=== PATIENT | female | born 1985 ===

== ENCOUNTER 2017-01-02 21:11 | Emergency (ER) | payer SELFPAY ==
[2017-01-02 21:30] VITALS: RESP 18; O2SAT 100
--- NOTE | 2017-01-02 21:36 | ED PDOC ---
"Arrival/HPI - General Chief Complaint: Female Genitourinary Time Seen by Provider: 01/02/17 21:35 Historian: Patient - History of Present Illness Narrative History of Present Illness (Text): 01/02/17 21:36 31 y/o female, LMP 09/11/2016, , nkda, no pmh, c/o headache/back/pelvic pain x 1 week. Pt. stated that she has been spotting on and off for the past 1 week especially during the urination, admits the lower back pain with no fall or trauma with pelvic pressure, no dizziness, no change in vision, no numbness or tingling, no other medical or psychological complaints. Past Medical History - Provider Review Nursing Documentation Reviewed: Yes - Endocrine/Metabolic Hx Diabetes Mellitus Type 2: (Gestational) - Psychiatric Hx Substance Use: (m) Family/Social History - Physician Review Nursing Documentation Reviewed: Yes Family/Social History: Unknown Family HX Smoking Status: n Hx Alcohol Use: No Hx Substance Use: (m) Allergies/Home Meds Allergies/Adverse Reactions: Allergies No Known Allergies Allergy (Verified 01/02/17 21:30) Review of Systems - Review of Systems Constitutional: absent: Fatigue, Fevers Eyes: absent: Vision Changes ENT: absent: Hearing Changes Respiratory: absent: SOB, Cough Cardiovascular: absent: Chest Pain Gastrointestinal: absent: Abdominal Pain, Nausea, Vomiting Genitourinary Female: Vaginal Bleeding, Other (pelvic pain) Musculoskeletal: Back Pain. absent: Arthralgias, Neck Pain Skin: absent: Rash, Pruritis, Skin Lesions, Laceration, Abscess, Ulcer Neurological: absent: Headache, Dizziness Physical Exam Vital Signs Reviewed: Yes Vital Signs Temp Pulse Resp BP Pulse Ox 01/02/17 21:24 98.2 F 72 18 132/74 100 Temperature: Afebrile Blood Pressure: Normal Pulse: Regular Respiratory Rate: Normal Appearance: Positive for: Well-Appearing, Non-Toxic, Comfortable Pain Distress: Mild Mental Status: Positive for: Alert and Oriented X 3 - Systems Exam Head: Present: Atraumatic, Normocephalic, Other (no temporal artery tenderness. ) Pupils: Present: PERRL Extroacular Muscles: Present: EOMI Conjunctiva: Present: Normal Ears: Present: NORMAL TM, Normal Canal. No: Erythema Mouth: Present: Moist Mucous Membranes Neck: Present: Normal Range of Motion, Trachea Midline. No: Meningeal Signs, MIDLINE TENDERNESS, Paraspinal Tenderness, Lymphadenopathy Respiratory/Chest: Present: Clear to Auscultation, Good Air Exchange. No: Respiratory Distress, Accessory Muscle Use Cardiovascular: Present: Regular Rate and Rhythm, Normal S1, S2. No: Murmurs Abdomen: Present: Normal Bowel Sounds. 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 No: Vaginal Discharge, Vaginal Bleeding, Vaginal Lesions, Adenexal Tenderness, Adenexal Mass, Cervical Motion Tendernes, Odor Back: Present: Normal Inspection, Other (Thoracic to LS spine: no midline tenderness or step off, no cva tenderness, FROM without limitation, sensation intact, motor 5/5. ). No: CVA Tenderness, Midline Tenderness, Paraspinal Tenderness, Pain with Leg Raise, Decubitus Ulcer Upper Extremity: Present: Normal Inspection. No: Cyanosis, Edema Lower Extremity: Present: Normal Inspection. No: Edema Neurological: Present: GCS=15, Speech Normal, Motor Func Grossly Intact, Gait Normal, Memory Normal Skin: Present: Warm, Dry, Normal Color. No: Rashes Psychiatric: Present: Alert, Oriented x 3, Normal Insight, Normal Concentration Medical Decision Making ED Course and Treatment: 01/02/17 21:36 -labs/ua -transvaginal sonogram -IVF/tylenol -Observe and reassess 01/02/17 00:40 -Labs are non-significant -Blood type: A+ -Beta hc -Sonogram show 15 week 6 day with FHR 147, os closed -There are no active bleeding. -Urinalysis show +UTI, no cva tenderness, macrobid ordered. -Pain improved, feeling much better, request to be discharged home, will discharge home. -Discharge home with tylenol, bed rest, stay hydrated, follow up with your own pmd and obgyn within 2 days, return to the ER for any new or worsening signs or symptoms. - Lab Interpretations Lab Results: 01/02/17 22:20 01/02/17 22:20 Lab Results 01/02/17 23:41: Urine Color Yellow, Urine Appearance Clear, Urine pH 6.0, Ur Specific [place] 1.010, Urine Protein Negative, Urine Glucose (UA) Negative, Urine Ketones Negative, Urine Blood Trace-lysed H, Urine Nitrate Negative, Urine Bilirubin Negative, Urine Urobilinogen 0.2, Ur Leukocyte Esterase Trace H , Urine RBC Pending, Urine WBC Pending 01/02/17 22:28: Blood Type A POSITIVE, Antibody Screen Negative, BBK History Checked No verified bt 01/02/17 22:20: Beta HCG, Quant 08135.00 H 01/02/17 22:20: Sodium 133, Potassium 4.6, Chloride 102, Carbon Dioxide 25, Anion Gap 11, BUN 11, Creatinine 0.5, Est GFR ( Amer) > 60, Est GFR (Non- Af Amer) > 60, Random Glucose 84, Calcium 9.5, Total Bilirubin 0.2, AST 24, ALT 33, Alkaline Phosphatase 56, Total Protein 7.3, Albumin 3.9, Globulin 3.4, Albumin/Globulin Ratio 1.1 01/02/17 22:20: WBC 6.2, RBC 3.58, Hgb 11.1 L, Hct 33.2 L, MCV 92.7, MCH 31.0, MCHC 33.4, RDW 12.9, Plt Count 304, MPV 8.9, Gran % 44.2 L, Lymph % (Auto) 45.2 H, [place] % (Auto) 9.6 H, Eos % (Auto) 0.8 L, Baso % (Auto) 0.2, Gran # 2.75, Lymph # 2.8, [place] # 0.6, Eos # 0.1, Baso # 0.01 I have reviewed the lab results: Yes Interpretation: Abnormal lab values (beta 93824, +UTI) - RAD Interpretation Radiology Orders: 01/02/17 21:36 AGE [US] Stat FINDINGS: Fetus: A single intrauterine gestation is identified. Heart rate: cardiac activity is identified at a rate of 147 beats per minute. Presentation: The fetus is in variable presentation. Placenta: The placenta is located posteriorly, and is greater than 2 cm from the cervical os. Anatomy: Intracranial/face anatomy not seen. Spinal anatomy was not visualized in its entirety. Abdominal anatomy not seen. Extremities not evaluated in the hepatic. Four- chamber heart is poorly visualized. Umbilical cord not evaluated sufficient for comment. BIOMETRICS Gestational age by US: EFW: 136.3 g plus or -20.5 g BPD: 3.1 cm, corresponding to an approximate gestational age of 15 weeks and 6 days. HC: 11.8 cm, corresponding to an approximate gestational age of 15 weeks and 6 days. AC: 10 cm, corresponding to an approximate gestational age of 16 weeks and 0 days. FL: 1.9 cm, corresponding to an approximate gestational age of 15 weeks and 4 days. MATERNAL: Uterus: As above. Cervix: Closed, measuring 5 cm in length. Free fluid: No free fluid. DAVE LAFLEUR | Final Radiology Report CONFIDENTIALITY STATEMENT This report is intended only for use by the referring physician, and only in accordance with law. If you received this in error, call [phone]. Page 2 of 2 Despite prolonged interrogation, neither ovary was visualized. IMPRESSION: Single intrauterine gestation with an approximate gestational age of 15 weeks and 6 days. Detailed anatomy scan not performed. cardiac activity is detected. Additional details, as above. Thank you for allowing us to participate in the care of your patient. Dictated and Authenticated by: Asya Joyce MD 01/02/2017 11:08 PM Eastern Time ([place] & [place]) Airport Sales Agent: Radiologist - Medication Orders Current Medication Orders: Discontinued Medications Acetaminophen (Tylenol 325mg Tab) 650 mg PO STAT STA Stop: 01/02/17 21:45 Last Admin: 01/02/17 23:27 Dose: 650 mg Sodium Chloride (Sodium Chloride 0.9%) 1,000 mls @ 999 mls/hr IV .[id number] STA Stop: 01/02/17 22:44 Last Admin: 01/02/17 23:24 Dose: 999 mls/hr - PA / [employer] / Resident Statement / has reviewed & agrees with the documentation as recorded. Disposition/Present on Arrival - Present on Arrival Any Indicators Present on Arrival: No History of DVT/PE: No History of Uncontrolled Diabetes: No Urinary Catheter: No History of Decub. Ulcer: No History Surgical Site Infection Following: None - Disposition Have Diagnosis and Disposition been Completed?: Yes Diagnosis: , Back pain, Headache, UTI (urinary tract infection) during Disposition Time: 23:30 Patient Plan: Discharge Patient Problems: Current Active Problems Problem Status Onset Back pain Acute Headache Acute Acute Condition: IMPROVED Additional Instructions: Discharge home with tylenol, macrobid, bed rest, stay hydrated, follow up with your own pmd and obgyn within 2 days, return to the ER for any new or worsening signs or symptoms. Prescriptions: Acetaminophen [Tylenol 325mg tab] 2 tab PO QID PRN #30 tab PRN Reason: Other Nitrofurantoin Macrocrystals [Macrobid] 100 mg PO BID #14 cap Referrals: Juan Starkey, [Primary Care Provider] - Follow up with primary Forms: WORK NOTE"
[2017-01-02] MEDS ORDERED: Sodium Chloride 0.9% 1,000 ML IV STA (21:44)
[2017-01-02 22:27] LABS: ADD MANUAL DIFF? NO
[2017-01-02 22:39] LABS: BASO # 0.01 K/mm3 (0.0-2.0); BASO % 0.2 % (0.0-3.0); EOS # 0.1 (0.0-0.7); EOS % 0.8 % (1.5-5.0); GRAN # 2.75 (1.4-6.5); GRAN % 44.2 % (50.0-68.0); HEMATOCRIT 33.2 % (36.0-48.0); LYMPH # 2.8 (1.2-3.4); LYMPH % 45.2 % (22.0-35.0); MEAN CELL VOLUME 92.7 fL (80.0-105.0); MEAN CORPUSCULAR HGB CONC 33.4 g/dl (31.0-37.0); MEAN PLATELET VOLUME 8.9 fl (7.0-11.0); MONO # 0.6 (0.1-0.6); MONO % 9.6 % (1.0-6.0); PLATELET COUNT 304 10^3/uL (120.0-450.0); RED CELL DISTRIBUTION WIDTH 12.9 % (11.5-14.5); WHITE BLOOD COUNT 6.2 10^3/ul (4.5-11.0)
[2017-01-02 22:42] LABS: ALB/GLOB RATIO 1.1 (1.1-1.8); ALKALINE PHOSPHATASE 56 U/L (38-133); ALT/SGPT 33 U/L (7-56); AST/SGOT 24 U/L (15-39); BILIRUBIN,TOTAL 0.2 mg/dL (0.2-1.3); BLOOD UREA NITROGEN 11 mg/dL (7-21); CALCIUM 9.5 mg/dL (8.4-10.5); CARBON DIOXIDE 25 mmol/L (21-33); CHLORIDE 102 mmol/L (98-107); GFR AFRICAN-AMERICAN > 60; GLUCOSE,RANDOM 84 mg/dL (70-110); POTASSIUM 4.6 mmol/L (3.6-5.0); SODIUM 133 mmol/L (132-148); TOTAL PROTEIN 7.3 g/dL (5.8-8.3)
--- NOTE | 2017-01-02 23:08 | US ---
EXAM: US After First Trimester, Transabdominal CLINICAL HISTORY: 31 years old, female; Pain; complicated by abdominal or pelvic pain; Lower; Second trimester; Gestational age or lmp: 09/11/2016; ; Additional info: and pain TECHNIQUE: Real-time transabdominal obstetrical ultrasound of the maternal pelvis and a second or third trimester with image documentation. COMPARISON: No relevant prior studies available. FINDINGS: Fetus: A single intrauterine gestation is identified. Heart rate: cardiac activity is identified at a rate of 147 beats per minute. Presentation: The fetus is in variable presentation. Placenta: The placenta is located posteriorly, and is greater than 2 cm from the cervical os. Anatomy: Intracranial/face anatomy not seen. Spinal anatomy was not visualized in its entirety. Abdominal anatomy not seen. Extremities not evaluated in the hepatic. Four-chamber heart is poorly visualized. Umbilical cord not evaluated sufficient for comment. BIOMETRICS Gestational age by US: EFW: 136.3 g plus or -20.5 g BPD: 3.1 cm, corresponding to an approximate gestational age of 15 weeks and 6 days. HC: 11.8 cm, corresponding to an approximate gestational age of 15 weeks and 6 days. AC: 10 cm, corresponding to an approximate gestational age of 16 weeks and 0 days. FL: 1.9 cm, corresponding to an approximate gestational age of 15 weeks and 4 days. MATERNAL: Uterus: As above. Cervix: Closed, measuring 5 cm in length. Free fluid: No free fluid. Despite prolonged interrogation, neither ovary was visualized. IMPRESSION: Single intrauterine gestation with an approximate gestational age of 15 weeks and 6 days. Detailed anatomy scan not performed. cardiac activity is detected. Additional details, as above.
[2017-01-03 00:33] LABS: URINE BILIRUBIN NEGATIVE (NEGATIVE); URINE BLOOD TRACE-LYSED (NEGATIVE); URINE GLUCOSE (UA) NEGATIVE (NEGATIVE); URINE KETONE NEGATIVE (NEGATIVE); URINE LEUKOCYTE ESTERASE TRACE Leu/uL (NEGATIVE); URINE PROTEIN NEGATIVE mg/dL (<30 mg/dL); URINE UROBILINOGEN 0.2 E.U./dL (<1 E.U./dL)
[2017-01-03 00:37] LABS: URINE APPEARANCE CLEAR (CLEAR); URINE COLOR YELLOW (YELLOW)
[2017-01-03 00:43] LABS: URINE BACTERIA FEW (NEG); URINE RBC 0 - 2 /hpf (0-2)
[2017-01-03 00:53] VITALS: BP 126/68; PULSE 74; TEMP 97.9
== END 2017-01-03 00:53 | disposition home or self-care (01) ==
LOC: ED 21:11
DX: O23.42 Unspecified infection of urinary tract in pregnancy, second trimester (principal); Z3A.15 15 weeks gestation of pregnancy; O26.892 Other specified pregnancy related conditions, second trimester; R51 Headache; M54.9 Dorsalgia, unspecified
CPT/HCPCS: 76815; 80053; 81001; 84702; 85025; 86850; 86900; 96360; 99283; J7040

== ENCOUNTER 2017-11-01 21:38 | Emergency (ER) | payer SELFPAY ==
[2017-11-01 21:49] VITALS: BMI 27.3
[2017-11-01 21:52] VITALS: TEMP 97.9; O2SAT 100
--- NOTE | 2017-11-01 22:06 | ED PDOC ---
Arrival/HPI - General Chief Complaint: Abdominal Pain Time Seen by Provider: 11/01/17 21:55 Historian: Patient - History of Present Illness Narrative History of Present Illness (Text): 11/01/17 22:06 Patient is a 32 year old female, P:1, whose past medical history includes section, who presents to the Emergency department complaining of vaginal bleeding and lower abdominal pain. Patient reports she recently underwent a section 4 months ago and had a positive test today. Patient denies fevers, chills, headache, dizziness, chest pain, shortness of breath, dyspnea on exertion, nausea, vomiting, diarrhea, back pain , neck pain, or any other complaint. Time/Duration: Other (Today) Symptom Onset: Gradual Symptom Course: Unchanged Activities at Onset: Light Context: Home Past Medical History - Provider Review Nursing Documentation Reviewed: Yes - Infectious Disease Hx of Infectious Diseases: None - Endocrine/Metabolic Hx Diabetes Mellitus Type 2: (Gestational) - Psychiatric Hx Substance Use: (m) Family/Social History - Physician Review Nursing Documentation Reviewed: Yes Family/Social History: No Known Family HX Smoking Status: n Hx Alcohol Use: No Hx Substance Use: (m) Allergies/Home Meds Allergies/Adverse Reactions: Allergies No Known Allergies Allergy (Verified 11/01/17 21:52) Review of Systems - Physician Review All systems were reviewed & negative as marked: Yes - Review of Systems Constitutional: absent: Fevers, Night Sweats Respiratory: absent: SOB, Cough Cardiovascular: absent: Chest Pain, [place] Gastrointestinal: Abdominal Pain. absent: Diarrhea, Nausea, Vomiting Genitourinary Female: Vaginal Bleeding Musculoskeletal: absent: Back Pain, Neck Pain Neurological: absent: Headache, Dizziness Physical Exam Vital Signs Reviewed: Yes Vital Signs Temp Pulse Resp BP Pulse Ox 11/02/17 01:55 97.9 F 78 18 128/62 100 11/01/17 21:49 97.9 F 76 20 132/58 L 100 Temperature: Afebrile Blood Pressure: Normal Pulse: Regular Respiratory Rate: Normal Appearance: Positive for: Well-Appearing, Non-Toxic, Comfortable Mental Status: Positive for: Alert and Oriented X 3 - Systems Exam Head: Present: Atraumatic, Normocephalic Pupils: Present: PERRL Extroacular Muscles: Present: EOMI Conjunctiva: Present: Normal Mouth: Present: Moist Mucous Membranes Neck: Present: Normal Range of Motion Respiratory/Chest: Present: Clear to Auscultation, Good Air Exchange. No: Respiratory Distress, Accessory Muscle Use Cardiovascular: Present: Regular Rate and Rhythm, Normal S1, S2. No: Murmurs Abdomen: Present: Tenderness (Lower abdominal tenderness). No: Distention, Peritoneal Signs Back: Present: Normal Inspection Upper Extremity: Present: Normal Inspection. No: Cyanosis, Edema Lower Extremity: Present: Normal Inspection. No: Edema Neurological: Present: GCS=15, CN II-XII Intact, Speech Normal Skin: Present: Warm, Dry, Normal Color. No: Rashes Psychiatric: Present: Alert, Oriented x 3, Normal Insight, Normal Concentration Medical Decision Making ED Course and Treatment: 11/01/17 22:06 Impression: Patient is 32 year old female with vaginal bleeding and abdominal pains. Differential Diagnosis included but are not limited to: Ectopic vs Ovarian cyst vs UTI. Plan: -- Labs, Beta-HCG -- Urinalysis -- Transvaginal US -- Tylenol -- Reassess and disposition Progress Notes: 11/02/17 00:54 EXAM: US First Trimester, Transabdominal US , Transvaginal FINDINGS: Gestation: Single live intrauterine gestation within lower uterine segment. heart rate of 98 beats per minute. [place]-rump length of 0.3 cm correlating with gestational age of 5 weeks 6 days. Uterus/cervix: No subchorionic hemorrhage. No cervical dilatation or effacement. Ovaries: RIGHT ovary: Normal. LEFT ovary: Probable 1.7 x 2.0 x 1.6 cm corpus luteal cyst. No adnexal masses. Free fluid: No significant free fluid. IMPRESSION: 1. Single live intrauterine gestation with low implantation and bradycardia. Close follow up is recommended. 2. Incidental/non-acute findings are described above. Dictated and Authenticated by: Mark Pizarro MD 11/02/2017 12:16 AM Eastern Time ([place] & [place]) - Lab Interpretations Lab Results: 11/02/17 00:20 11/02/17 00:20 Lab Results 11/02/17 00:20: Beta HCG, Quant [id number] H 11/02/17 00:20: Sodium 137, Potassium 4.0, Chloride 103, Carbon Dioxide 23, Anion Gap 15, BUN 11, Creatinine 0.5 L, Est GFR ( Amer) > 60, Est GFR ( Non-Af Amer) > 60, Random Glucose 108, Calcium 9.2, Total Bilirubin < 0.1 L, AST 26, ALT 28, Alkaline Phosphatase 64, Total Protein 7.0, Albumin 4.0, Globulin 3.0, Albumin/Globulin Ratio 1.3 11/02/17 00:20: WBC 8.1 D, RBC 3.70, Hgb 11.3 L, Hct 33.9 L, MCV 91.6, MCH 30.5 , MCHC 33.3, RDW 13.1, Plt Count 294, MPV 9.0, Gran % 44.4 L, Lymph % (Auto) 46.3 H, [place] % (Auto) 8.5 H, Eos % (Auto) 0.7 L, Baso % (Auto) 0.1, Gran # 3.61 , Lymph # (Auto) 3.8 H, [place] # (Auto) 0.7 H, Eos # (Auto) 0.1, Baso # (Auto) 0.01 11/01/17 22:40: Urine Color Yellow, Urine Appearance Sl cloudy, Urine pH 6.5, Ur Specific [place] 1.020, Urine Protein Negative, Urine Glucose (UA) Negative, Urine Ketones Negative, Urine Blood Large H, Urine Nitrate Negative, Urine Bilirubin Negative, Urine Urobilinogen 0.2, Ur Leukocyte Esterase Negative, Urine RBC 5 - 10, Urine WBC 2 - 5, Ur Epithelial Cells 6 - 8, Urine Bacteria Few I have reviewed the lab results: Yes - RAD Interpretation Radiology Orders: 11/01/17 22:18 OB TRANSVAGINAL [US] Stat Aquatic Ecologist: Radiologist - Medication Orders Current Medication Orders: Discontinued Medications Acetaminophen (Tylenol 325mg Tab) 650 mg PO STAT STA Stop: 11/01/17 22:41 Last Admin: 11/01/17 22:43 Dose: 650 mg MAR Pain/Vitals Document 11/01/17 22:43 MS (Rec: 11/01/17 22:44 MS [id number]) Pain Reassessment Is This A Pain ReAssessment? No Sleep Is patient sleeping during reassessment? No Presence of Pain Presence of Pain Yes Pain Scale Used Pain Scale Used Numeric Location Upper or Lower Lower Pain Location Body Site Abdomen Description Constant Intensity 8 Scale Used Numeric Pain Behavior Guarding Sodium Chloride (Sodium Chloride 0.9%) 1,000 mls @ 80 mls/hr IV .[id number] [place] Last Admin: 11/02/17 00:25 Dose: 80 mls/hr eMAR Start Stop Document 11/02/17 00:25 KAIT (Rec: 11/02/17 00:26 KAIT [id number]) Intravenous Solution Start Date 11/02/17 Start Time 00:25 End Date 11/02/17 Oxycodone/Acetaminophen (Percocet 5/325 Mg Tab) 1 tab PO STAT STA Stop: 11/02/17 00:29 Last Admin: 11/02/17 00:45 Dose: 1 tab MAR Pain Assessment Document 11/02/17 00:45 AD (Rec: 11/02/17 00:46 AD [id number]) Pain Reassessment Is this a pain reassessment? No Presence of Pain Presence of Pain Yes Pain Scale Used Pain Scale Used Numeric Description Intensity of Pain at present 7 Pain Behavior Facial Grimacing - Scribe Statement The provider has reviewed the documentation as recorded by the Scribe Sergei Reed Training Under Lois Gonzalez Provider Scribe Attestation: All medical record entries made by the Scribe were at my direction and personally dictated by me. I have reviewed the chart and agree that the record accurately reflects my personal performance of the history, physical exam, medical decision making, and the department course for this patient. I have also personally directed, reviewed, and agree with the discharge instructions and disposition. Disposition/Present on Arrival - Present on Arrival Any Indicators Present on Arrival: No History of DVT/PE: No History of Uncontrolled Diabetes: No Urinary Catheter: No History of Decub. Ulcer: No History Surgical Site Infection Following: None - Disposition Have Diagnosis and Disposition been Completed?: Yes Diagnosis: Threatened Disposition: HOME/ ROUTINE Disposition Time: 01:55 Condition: GOOD Discharge Instructions (ExitCare): Threatened Miscarriage (DC) Prescriptions: oxyCODONE/Acetaminophen [Percocet 5/325 mg Tab] 1 ea PO QID #8 tab [facility] - Follow up with primary PCP,NO [Primary Care Provider] - Follow up with primary Forms: [employer] ([place]rian)
[2017-11-01 22:50] LABS: PH,URINE 6.5 (4.7-8.0); URINE BILIRUBIN NEGATIVE (NEGATIVE); URINE BLOOD LARGE (NEGATIVE); URINE GLUCOSE (UA) NEGATIVE (NEGATIVE); URINE LEUKOCYTE ESTERASE NEGATIVE Leu/uL (NEGATIVE); URINE PROTEIN NEGATIVE mg/dL (<30 mg/dL); URINE UROBILINOGEN 0.2 E.U./dL (<1 E.U./dL)
[2017-11-01 22:54] LABS: URINE APPEARANCE SL CLOUDY (CLEAR); URINE COLOR YELLOW (YELLOW)
[2017-11-01 23:03] LABS: URINE BACTERIA FEW (NEG)
[2017-11-01] MEDS ORDERED: Sodium Chloride 0.9% 1,000 ML IV SCH (23:15)
--- NOTE | 2017-11-02 00:16 | US ---
EXAM: US First Trimester, Transabdominal US , Transvaginal CLINICAL HISTORY: 32 years old, female; Pain; complicated by abdominal or pelvic pain; Lower; First trimester; Gestational age or lmp: 09/11/2017; ; Additional info: Abd pain TECHNIQUE: Real-time transabdominal and transvaginal obstetrical ultrasound of the maternal pelvis and a first trimester with image documentation. Transvaginal imaging was used for better evaluation of the fetus and adnexa. COMPARISON: No relevant prior studies available. FINDINGS: Gestation: Single live intrauterine gestation within lower uterine segment. heart rate of 98 beats per minute. [place]-rump length of 0.3 cm correlating with gestational age of 5 weeks 6 days. Uterus/cervix: No subchorionic hemorrhage. No cervical dilatation or effacement. Ovaries: RIGHT ovary: Normal. LEFT ovary: Probable 1.7 x 2.0 x 1.6 cm corpus luteal cyst. No adnexal masses. Free fluid: No significant free fluid. IMPRESSION: 1. Single live intrauterine gestation with low implantation and bradycardia. Close follow up is recommended. 2. Incidental/non-acute findings are described above.
[2017-11-02] MEDS ORDERED: Oxycodone/Acetaminophen 5/325 mg Tab PO STA (00:28)
[2017-11-02 00:51] LABS: BASO # 0.01 K/mm3 (0.0-2.0); BASO % 0.1 % (0.0-3.0); EOS # 0.1 (0.0-0.7); EOS % 0.7 % (1.5-5.0); GRAN # 3.61 (1.4-6.5); GRAN % 44.4 % (50.0-68.0); HEMOGLOBIN 11.3 g/dL (12.0-16.0); LYMPH # 3.8 (1.2-3.4); LYMPH % 46.3 % (22.0-35.0); MEAN CELL VOLUME 91.6 fl (80.0-105.0); MEAN CORPUSCULAR HEMOGLOBIN 30.5 pg (25.0-35.0); MEAN CORPUSCULAR HGB CONC 33.3 g/dl (31.0-37.0); MONO # 0.7 (0.1-0.6); MONO % 8.5 % (1.0-6.0); RBC 3.7 10^6/uL (3.5-6.1); RED CELL DISTRIBUTION WIDTH 13.1 % (11.5-14.5); WHITE BLOOD COUNT 8.1 10^3/ul (4.5-11.0)
[2017-11-02 01:08] LABS: ALB/GLOB RATIO 1.3 (1.1-1.8); ALT/SGPT 28 U/L (7-56); AST/SGOT 26 U/L (14-36); BLOOD UREA NITROGEN 11 mg/dL (7-21); CALCIUM 9.2 mg/dL (8.4-10.5); GFR AFRICAN-AMERICAN > 60; GFR NON-AFRICAN AMERICAN > 60
[2017-11-02 02:18] VITALS: BP 128/62; PULSE 78; RESP 18
== END 2017-11-02 01:55 | disposition home or self-care (01) ==
LOC: ED 21:38
DX: O20.0 Threatened abortion (principal); Z3A.01 Less than 8 weeks gestation of pregnancy
CPT/HCPCS: 76817; 80053; 81001; 84702; 85025; 99283; J7040